=== PATIENT | female | born 1965 | race African-American/Black ===

== ENCOUNTER 2017-11-30 21:45 | Emergency (ER) | payer MEDICARE ==
[2017-11-30] MEDS ORDERED: FLUORESCEIN OPHTH TEST STRIP. (22:12)
[2017-11-30] MEDS ORDERED: TETRACAINE 0.5% OPHTH SOLUTION 4ML BOTTLE. (22:12)
[2017-11-30] MEDS: PROPARACAINE 0.5% OPHTH SOLUTION 15ML BOTTLE. OD (23:00)
[2017-11-30] MEDS: FLUORESCEIN OPHTH TEST STRIP. OD (23:00)
[2017-11-30] MEDS: ERYTHROMYCIN 0.5% OPHTH OINTMENT 1GM TUBE. OD (23:52)
== END 2017-12-01 00:15 | disposition home or self-care (01) ==
LOC: ER 12-01 00:15
DX: S05.01XA Injury of conjunctiva and corneal abrasion without foreign body, right eye, initial encounter (principal); E11.9 Type 2 diabetes mellitus without complications; I10 Essential (primary) hypertension; J45.909 Unspecified asthma, uncomplicated; Y93.89 Activity, other specified; W22.8XXA Striking against or struck by other objects, initial encounter; Y99.8 Other external cause status; Y92.89 Other specified places as the place of occurrence of the external cause
CPT/HCPCS: 99283

== ENCOUNTER 2018-09-21 11:25 | Emergency (ER) | payer MEDICARE ==
[~2018-09-21] VITALS: Ht 154.9 cm; Wt 133.4 kg
[~2018-09-21 11:25] MED LIST: ERYT1OIN6 OP; HYDR-2761 PO
[2018-09-21] MEDS ORDERED: MORPHINE SULFATE 4 MG/ML VIAL. IV ONE (12:00)
[2018-09-21] MEDS ORDERED: IV NORMAL SALINE 1000ML BAG 1,000 ML IV ONE (12:00)
[2018-09-21] MEDS ORDERED: ONDANSETRON PF 4 MG/2 ML VIAL. IV ONE (12:00)
[2018-09-21 12:39] LABS: BASO % 1 % (0-3); EOS # 0.1 x10^3/uL (0.0-0.7); EOS % 2 % (0-3); HEMATOCRIT 34.3 % (36.0-47.0); HEMOGLOBIN 11.1 g/dL (12.0-15.5); LYMPH # 1.4 x10^3/uL (1.0-4.8); LYMPH % 28 % (24-48); MEAN CORPUSCULAR HEMOGLOBIN 28 pg (25-35); MEAN CORPUSCULAR HGB CONC 32 g/dL (31-37); MEAN CORPUSCULAR VOLUME 88 fL (79-100); MONO # 0.4 x10^3/uL (0.0-1.1); MONO % 8 % (0-9); NEUT % 62 % (31-73); PLATELET COUNT 321 x10^3/uL (140-400); RED CELL DISTRIBUTION WIDTH 14.3 % (11.5-14.5); WHITE BLOOD COUNT 4.9 x10^3/uL (4.0-11.0)
[2018-09-21 12:48] LABS: CALCIUM 8.7 mg/dL (8.5-10.1); CREATININE 1.4 mg/dL (0.6-1.0); GFR 47.8; POTASSIUM 4.5 mmol/L (3.5-5.1)
[2018-09-21 12:50] LABS: BARBITURATES NEG (NEG); BENZODIAZEPINES NEG (NEG); CANNABINOIDS NEG (NEG); COCAINE NEG (NEG); METHADONE NEG (NEG); OPIATES POS (NEG); PHENCYCLIDINE NEG (NEG)
[2018-09-21 12:52] LABS: AMPHETAMINE/METHAMPHETAMINE NEG (NEG)
[2018-09-21 12:54] LABS: ALBUMIN 3.3 g/dL (3.4-5.0); ALBUMIN/GLOBULIN RATIO 0.8 (1.0-1.7); TOTAL BILIRUBIN 0.3 mg/dL (0.2-1.0); TOTAL PROTEIN 7.7 g/dL (6.4-8.2)
[2018-09-21] MEDS ORDERED: CONTRAST GIVEN. MC PRN (13:00)
--- NOTE | 2018-09-21 13:27 | RAD ---
CT abdomen pelvis with contrast dated 09/21/2018. COMPARISON: None. CLINICAL INDICATION: Abdominal pain. History of gastric bypass. TECHNIQUE: Routine axial imaging of the abdomen and pelvis performed after the intravenous administration of 60 cc Omnipaque 300. One or more of the following individualized dose reduction techniques were utilized for this examination: 1. Automated exposure control 2. Adjustment of the mA and/or kV according to patient size 3. Use of iterative reconstruction technique. FINDINGS: Study is limited due to body habitus. Limited images of the lung bases are clear. Heart size upper limits of normal. No pleural or pericardial effusion. Liver is homogeneous in attenuation. No apparent mass. No biliary ductal dilatation. There are layering stones versus sludge within the gallbladder. Spleen is mildly enlarged. There is multiple splenic granuloma. Pancreas, adrenal glands and kidneys are unremarkable. No hydronephrosis. Unopacified GI tract is normal in caliber and contour. Evidence of prior gastric bypass. No bowel wall thickening. No inflammatory stranding in the mesentery. The appendix is normal in caliber. No ascites or lymphadenopathy. Abdominal aorta normal in caliber. Images of pelvis show nondistended urinary bladder. Uterus is enlarged and heterogeneous. No free fluid or lymphadenopathy. Bone windows show no acute findings. Mild lower lumbar spondylosis. IMPRESSION: 1. No acute abnormality of abdomen or pelvis. 2. Cholelithiasis. 3. Mild splenomegaly. 4. Heterogeneous uterus, possibly related to fibroids. Electronically signed by: Kurtis Thompson MD (09/21/2018 1:24 PM) [facility]
[2018-09-21 13:28] LABS: BILIRUBIN,URINE NEGATIVE (NEG); CLARITY,URINE CLEAR; COLOR,URINE YELLOW; NITRITE,URINE NEGATIVE (NEG); PH,URINE 6.5; PROTEIN,URINE NEGATIVE (NEG-TRACE)
[2018-09-21 13:29] LABS: BACTERIA,URINE 0 /HPF (0-FEW); RBC,URINE 0 /HPF (0-2); WBC,URINE 0 /HPF (0-4)
[2018-09-21 13:30] LABS: SQUAMOUS EPITHELIAL CELL,UR MANY /LPF
[2018-09-21] MEDS ORDERED: IOHEXOL 300 MG/ML 100ML VIAL. IV ONE (13:30)
[2018-09-21 14:45] VITALS: BP 130/64
--- NOTE | 2018-09-21 15:07 | PHYS DOC ---
Past Medical History Past Medical History: Asthma, Diabetes-Type II, Hypertension Past Surgical History: Other Additional Past Surgical Histo: GASTRIC BYPASS,LEFT WRIST,VAGIANL CYST Alcohol Use: None Drug Use: None Adult General Chief Complaint Chief Complaint: ABDOMINAL PAIN HPI HPI Patient is a 52 year old female with history of diabetes type 2, hypertension, asthma, gastric bypass 4 years ago, who presents to the ED today complaining of 8 out of 10 sharp left lower quadrant abdominal pain with nausea no vomiting that began 2 months ago. Patient states the pain is intermittent. Denies any thing specifically exacerbating or relieving the pain. Denies any fever. Denies any diarrhea. She states she had a normal bowel movement yesterday. Review of Systems Review of Systems Constitutional: Denies fever or chills [] Eyes: Denies change in visual acuity, redness, or eye pain [] HENT: Denies nasal congestion or sore throat [] Respiratory: Denies cough or shortness of breath [] Cardiovascular: No additional information not addressed in HPI [] GI: Reports left LLQ abdominal pain, denies vomiting, bloody stools or diarrhea [] : Denies dysuria or hematuria [] Musculoskeletal: Denies back pain or joint pain [] Integument: Denies rash or skin lesions [] Neurologic: Denies headache, focal weakness or sensory changes [] All other systems were reviewed and found to be within normal limits, except as documented in this note. Current Medications Current Medications Current Medications Medications (Trade) Dose Ordered Sig/Ruben Start Time Stop Time Status Last Admin Dose Admin Info (CONTRAST GIVEN -- Rx MONITORING) 1 each PRN DAILY PRN 09/21/18 13:00 09/23/18 12:59 Iohexol (Omnipaque 300 Mg/ml) 60 ml 1X ONCE 09/21/18 13:30 09/21/18 13:31 DC 09/21/18 13:05 60 ML Morphine Sulfate (Morphine Sulfate) 4 mg 1X ONCE 09/21/18 12:00 09/21/18 12:01 DC 09/21/18 12:24 4 MG Ondansetron HCl (Zofran) 4 mg 1X ONCE 09/21/18 12:00 09/21/18 12:01 DC 09/21/18 12:24 4 MG Sodium Chloride 1,000 ml @ 1,000 mls/hr 1X ONCE 09/21/18 12:00 09/21/18 12:59 DC 09/21/18 12:24 1,000 MLS/HR Allergies Allergies Allergies Coded Allergies Type Severity Reaction Last Updated Verified No Known Drug Allergies 10/01/13 No Physical Exam Physical Exam Constitutional: Morbidly obese patient. Well developed, well nourished, no acute distress, non-toxic appearance. [] HENT: Normocephalic, atraumatic, bilateral external ears normal, oropharynx moist, no oral exudates, nose normal. [] Eyes: PERRLA, EOMI, conjunctiva normal, no discharge. [] Neck: Normal range of motion, no tenderness, supple, no stridor. [] Cardiovascular:Heart rate regular rhythm, no murmur [] Lungs & Thorax: Bilateral breath sounds clear to auscultation [] Abdomen: Obese abdomen. Bowel sounds normal, soft, diffuse tenderness on the LLQ of the abdomen, no LUQ or right upper quadrant or right lower quadrant tenderness, no masses, no pulsatile masses. [] Skin: Warm, dry, no erythema, no rash. [] Back: No tenderness, no CVA tenderness. [] Extremities: No tenderness, no cyanosis, no clubbing, ROM intact, no edema. [] Neurologic: Alert and oriented X 3, normal motor function, normal sensory function, no focal deficits noted. [] Psychologic: Affect normal, judgement normal, mood normal. [] Current Patient Data Vital Signs Vital Signs Date Time Temp Pulse Resp B/P (MAP) Pulse Ox O2 Delivery O2 Flow Rate FiO2 09/21/18 13:53 93 125/68 (87) 95 Room Air 09/21/18 11:49 97.9 20 97.9 Lab Values Laboratory Tests Test 09/21/18 12:20 09/21/18 13:00 White Blood Count 4.9 x10^3/uL (4.0-11.0) Red Blood Count 3.90 x10^6/uL (3.50-5.40) Hemoglobin 11.1 g/dL (12.0-15.5) L Hematocrit 34.3 % (36.0-47.0) L Mean Corpuscular Volume 88 fL (79-100) Mean Corpuscular Hemoglobin 28 pg (25-35) Mean Corpuscular Hemoglobin Concent 32 g/dL (31-37) Red Cell Distribution Width 14.3 % (11.5-14.5) Platelet Count 321 x10^3/uL (140-400) Neutrophils (%) (Auto) 62 % (31-73) Lymphocytes (%) (Auto) 28 % (24-48) Monocytes (%) (Auto) 8 % (0-9) Eosinophils (%) (Auto) 2 % (0-3) Basophils (%) (Auto) 1 % (0-3) Neutrophils # (Auto) 3.0 x10^3uL (1.8-7.7) Lymphocytes # (Auto) 1.4 x10^3/uL (1.0-4.8) Monocytes # (Auto) 0.4 x10^3/uL (0.0-1.1) Eosinophils # (Auto) 0.1 x10^3/uL (0.0-0.7) Basophils # (Auto) 0.0 x10^3/uL (0.0-0.2) Sodium Level 142 mmol/L (136-145) Potassium Level 4.5 mmol/L (3.5-5.1) Chloride Level 106 mmol/L (98-107) Carbon Dioxide Level 26 mmol/L (21-32) Anion Gap 10 (6-14) Blood Urea Nitrogen 29 mg/dL (7-20) H Creatinine 1.4 mg/dL (0.6-1.0) H Estimated GFR (Cockcroft-Gault) 47.8 BUN/Creatinine Ratio 21 (6-20) H Glucose Level 97 mg/dL (70-99) Calcium Level 8.7 mg/dL (8.5-10.1) Total Bilirubin 0.3 mg/dL (0.2-1.0) Aspartate Amino Transferase (AST) 16 U/L (15-37) Alanine Aminotransferase (ALT) 16 U/L (14-59) Alkaline Phosphatase 121 U/L (46-116) H Total Protein 7.7 g/dL (6.4-8.2) Albumin 3.3 g/dL (3.4-5.0) L Albumin/Globulin Ratio 0.8 (1.0-1.7) L Lipase 143 U/L (73-393) Urine Opiates Screen Pos (NEG) Urine Methadone Screen Neg (NEG) Urine Barbiturates Neg (NEG) Urine Phencyclidine Screen Neg (NEG) Urine Amphetamine/Methamphetamine Neg (NEG) Urine Benzodiazepines Screen Neg (NEG) Urine Cocaine Screen Neg (NEG) Urine Cannabinoids Screen Neg (NEG) Ethyl Alcohol Level < 10 mg/dL (0-10) Urine Ethyl Alcohol Neg (NEG) Urine Collection Type Unknown Urine Color Yellow Urine Clarity Clear Urine pH 6.5 Urine Specific [place] 1.025 Urine Protein Negative mg/dL (NEG-TRACE) Urine Glucose (UA) Negative mg/dL (NEG) Urine Ketones (Stick) Negative mg/dL (NEG) Urine Blood Negative (NEG) Urine Nitrite Negative (NEG) Urine Bilirubin Negative (NEG) Urine Urobilinogen Dipstick 1.0 mg/dL (0.2 mg/dL) Urine Leukocyte Esterase Negative (NEG) Urine RBC 0 /HPF (0-2) Urine WBC 0 /HPF (0-4) Urine Squamous Epithelial Cells Many /LPF Urine Bacteria 0 /HPF (0-FEW) Laboratory Tests 09/21/18 12:20 Laboratory Tests 09/21/18 12:20 EKG EKG [] Radiology/Procedures Radiology/Procedures []PROCEDURE: CT ABD PELV W/ IV CONTRST ONLY CT abdomen pelvis with contrast dated 09/21/2018. COMPARISON: None. CLINICAL INDICATION: Abdominal pain. History of gastric bypass. TECHNIQUE: Routine axial imaging of the abdomen and pelvis performed after the intravenous administration of 60 cc Omnipaque 300. One or more of the following individualized dose reduction techniques were utilized for this examination: 1. Automated exposure control 2. Adjustment of the mA and/or kV according to patient size 3. Use of iterative reconstruction technique. FINDINGS: Study is limited due to body habitus. Limited images of the lung bases are clear. Heart size upper limits of normal. No pleural or pericardial effusion. Liver is homogeneous in attenuation. No apparent mass. No biliary ductal dilatation. There are layering stones versus sludge within the gallbladder. Spleen is mildly enlarged. There is multiple splenic granuloma. Pancreas, adrenal glands and kidneys are unremarkable. No hydronephrosis. Unopacified GI tract is normal in caliber and contour. Evidence of prior gastric bypass. No bowel wall thickening. No inflammatory stranding in the mesentery. The appendix is normal in caliber. No ascites or lymphadenopathy. Abdominal aorta normal in caliber. Images of pelvis show nondistended urinary bladder. Uterus is enlarged and heterogeneous. No free fluid or lymphadenopathy. Bone windows show no acute findings. Mild lower lumbar spondylosis. IMPRESSION: 1. No acute abnormality of abdomen or pelvis. 2. Cholelithiasis. 3. Mild splenomegaly. 4. Heterogeneous uterus, possibly related to fibroids. Electronically signed by: Kurtis Thompson MD (09/21/2018 1:24 PM) [facility] DICTATED and SIGNED BY: KURTIS THOMPSON MD DATE: 09/21/18 3938 Course & Med Decision Making Course & Med Decision Making Pertinent Labs and Imaging studies reviewed. (See chart for details) This is a morbidly obese 52-year-old female patient presented to the ED today complaining of LLQ abdominal pain for 2 months with the nausea and no vomiting. Patient has history of gastric bypass 4 years ago. CBC with a normal WBC, urine analysis is negative for infection, CMP with BUN of 29, creatinine 1.4. Patient was given a liter of fluid, Zofran. CT of the abdomen and pelvic was negative for any acute findings, noted for cholelithiasis, mild splenomegaly, fibroids, patient has no LUQ tenderness on exam. Patient's vitals are stable. Patient has good follow-up, and instructed to follow-up with the PCP as well as general surgeon in the course of next week of this week. Dragon Disclaimer Dragon Disclaimer This electronic medical record was generated, in whole or in part, using a voice recognition dictation system. Departure Departure Impression: Primary Impression: Abdominal pain Additional Impression: Cholelithiasis Disposition: 01 HOME, SELF-CARE Condition: STABLE Referrals: LAURENCE SMART MD (PCP) Follow-up in one week BEBA COLE MD follow up in 1-2 weeks Patient Instructions: Abdominal Pain (Nonspecific) Additional Instructions: You were evaluated in the emergency room for abdominal pain, we could not find any specific acute cause for the pain especially on the left side. You were noted to have gallstones, follow-up with the general surgeon or the provided general surgeon in one to 2 weeks. Problem Qualifiers Primary Impression: Abdominal pain Abdominal location: left lower quadrant Qualified Codes: R10.32 - Left lower quadrant pain Additional Impression: Cholelithiasis Cholelithiasis location: gallbladder Cholecystitis presence: without cholecystitis Biliary obstruction: without biliary obstruction Qualified Codes: K80.20 - Calculus of gallbladder without cholecystitis without obstruction MUTUNGA,JOSE L [employer] September 21, 2018 15:07
== END 2018-09-21 15:34 | disposition home or self-care (01) ==
LOC: ER 11:25
DX: K80.20 Calculus of gallbladder without cholecystitis without obstruction (principal); J45.909 Unspecified asthma, uncomplicated; E11.9 Type 2 diabetes mellitus without complications; I10 Essential (primary) hypertension; R16.1 Splenomegaly, not elsewhere classified; N85.8 Other specified noninflammatory disorders of uterus; Z98.84 Bariatric surgery status
CPT/HCPCS: 36415; 74177; 80053; 80307; 81001; 83690; 85025; 96374; 96375; 99285; G0480; J2270; J2405; J7030; Q9967

== ENCOUNTER 2021-07-26 05:06 | Emergency (ER) | payer MEDICARE, OTHER ==
[~2021-07-26] VITALS: Ht 157.5 cm; Wt 134.0 kg
--- NOTE | 2021-07-26 05:09 | PHYS DOC ---
Past Medical History Past Medical History: Asthma, Diabetes-Type II, Hypertension Past Surgical History: Other Additional Past Surgical Histo: GASTRIC BYPASS,LEFT WRIST,VAGIANL CYST Smoking Status: Never Smoker Alcohol Use: None Drug Use: None General Adult EDM: Chief Complaint: LOWEREXTREMITY INJURY HPI: HPI: Patient is a 55 year old female who presents with bilateral knee pain. Left knee is slightly more painful than the right. She reports that yesterday around 9 AM, she was getting out of a Jacuzzi at a hotel and her left knee "gave out." She did not experience any direct fall or trauma to her knee or her body. She has chronic knee pain, reportedly has "[id number]" in both knees. Her primary care physician prescribes hydrocodone for her. She last took a dose around 2 hours prior to arrival. She is not out of this medication. She has been for to outpatient orthopedics, she has not made any attempt to follow-up regarding this. She reports that her pain is worse today, she is having increased pain with attempts at weightbearing. She is supposed to use a quad cane for ambulation, but she reports that she does not know how to use it. She denies head injury, neck pain, back pain, chest pain, shortness of breath, abdominal pain, nausea or vomiting. Review of Systems: Review of Systems: Constitutional: Denies fever or chills. [] Respiratory: Denies cough or shortness of breath. [] Cardiovascular: Denies chest pain or edema. [] GI: Denies abdominal pain, nausea, vomiting : Denies urinary symptoms Musculoskeletal: Bilateral knee pain Integument: Denies rash. [] Neurologic: Denies headache, focal weakness or sensory changes. [] Psychiatric: Anxiety Heart Score: C/O Chest Pain: No Risk Factors: Risk Factors: DM, Current or recent (<one month) smoker, HTN, HLP, family history of CAD, obesity. Risk Scores: Score 0 - 3: 2.5% MACE over next 6 weeks - Discharge Home Score 4 - 6: 20.3% MACE over next 6 weeks - Admit for Clinical Observation Score 7 - 10: 72.7% MACE over next 6 weeks - Early Invasive Strategies Allergies: Allergies: Allergies Coded Allergies Type Severity Reaction Last Updated Verified No Known Drug Allergies 10/01/13 No Physical Exam: PE: Constitutional: Well developed, well nourished, no acute distress, non-toxic appearance. [] HENT: Normocephalic, atraumatic Eyes: Sclera are clear and anicteric Neck: Trachea is midline Cardiovascular: +2 dorsalis pedis and posterior tibial pulses bilaterally Lungs & Thorax: Respirations are nonlabored Skin: Warm, dry, no erythema, no rash. No open wounds or abrasions. Back: No tenderness, full range of motion, no deformity Extremities: No acute limb deformity is noted. Bilateral anterior knees are tender to palpation. There is slightly more soft tissue swelling of the left anterior knee, infrapatellar area. Painful active and passive range of motion of the bilateral knees. Left knee is particularly more painful with active extension. No ligamentous laxity is noted. No crepitus or subcutaneous emp hysema. No warmth or erythema. No large joint effusion is obviously noted. No calf tenderness is noted. Pelvis is stable. Neurologic: Alert and oriented X 3, normal motor function, normal sensory function, no focal deficits noted. [] Psychologic: She is, hyperventilating, tearful EKG: EKG: [] Radiology/Procedures: Radiology/Procedures: IMAGING REPORT Signed PATIENT: ALEKSANDR QUEEN ACCOUNT: [id number] : 1965 LOCATION: ER AGE: 55 SEX: F EXAM STATUS: PRE ER ORD. PHYSICIAN: COLT ROBERTS DO REASON: knee pain PROCEDURE: KNEE BILAT 3V Exam: XR BILATERAL KNEE 3 VIEWS History: Knee pain Comparison: None. Findings: Decreased osseous mineralization. Advanced bilateral patellofemoral compartment degenerative changes. Narrowing of the bilateral medial tibiofemoral compartments. No significant effusion. No fracture or dislocation. No focal soft tissue swelling. Impression: 1. Bilateral knee osteoarthritis. No acute osseous abnormality. Electronically signed by: Victor Hugo Amanda MD (07/26/2021 6:10 AM) [facility] DICTATED and SIGNED BY: VICTOR HUGO AMANDA MD DATE: 07/26/21 0610 Course & Med Decision Making: Course & Med Decision Making Pertinent Labs and Imaging studies reviewed. (See chart for details) The patient is given IM morphine here for pain. She is resting comfortably. I discussed the findings, differential diagnosis and plan of care with her. I discussed that she needs to follow-up with her primary care physician, further, nonemergent outpatient imaging may be warranted, such as MRI. She should also follow with the outpatient orthopedist to which she was referred. Return precautions are given. Luis Disclaimer: Dragon Disclaimer: This electronic medical record was generated, in whole or in part, using a voice recognition dictation system. Departure Departure Impression: Primary Impression: Bilateral knee pain Qualified Codes: M25.561 - Pain in right knee; M25.562 - Pain in left knee; G89.29 - Other chronic pain Disposition: HOME / SELF CARE / HOMELESS Condition: STABLE Referrals: LAURENCE RODAS MD (PCP) Patient Instructions: Knee Sprain, Osteoarthritis Additional Instructions: You may continue taking your prescription medication as needed/as directed. Please contact Dr. Rodas's office today, also follow-up with the outpatient orthopedic surgeon you were referred to. Return to the ER for acute injury or trauma, severe swelling, severe joint redness, temperature 100.4 or higher, or for any other concerns. COLT ROBERTS DO Jul 26, 2021 05:09
[2021-07-26] MEDS ORDERED: MORPHINE SULFATE 4 MG/ML INJ. IM ONE (05:30)
--- NOTE | 2021-07-26 06:13 | RAD ---
Exam: XR BILATERAL KNEE 3 VIEWS History: Knee pain Comparison: None. Findings: Decreased osseous mineralization. Advanced bilateral patellofemoral compartment degenerative changes. Narrowing of the bilateral medial tibiofemoral compartments. No significant effusion. No fracture or dislocation. No focal soft tissue swelling. Impression: 1. Bilateral knee osteoarthritis. No acute osseous abnormality. Electronically signed by: Victor Hugo Celaya MD (07/26/2021 6:10 AM) [facility]
[2021-07-26 06:54] VITALS: BP 127/69
== END 2021-07-26 06:59 | disposition home or self-care (01) ==
LOC: ER 05:06
DX: M25.562 Pain in left knee (principal); M25.561 Pain in right knee; I10 Essential (primary) hypertension; E11.9 Type 2 diabetes mellitus without complications; J45.909 Unspecified asthma, uncomplicated
CPT/HCPCS: 73562; 96372; 99285; J2270